=== PATIENT | female | born 1970 | race Caucasian/White ===

== ENCOUNTER 2016-11-26 19:06 | Inpatient (IN) | payer SELFPAY ==
[~2016-11-26] VITALS: Ht 162.6 cm; Wt 133.0 kg
[2016-11-26 20:00] VITALS: BP 104/66; PULSE 88; RESP 20; TEMP 98; O2SAT 97
[2016-11-26 20:19] VITALS: BP 104/66
[2016-11-27] MEDS ORDERED: SODIUM CHLOR 0.9% 1000 ML INJ 1,000 ML IV ONE (01:00)
[2016-11-27] MEDS ORDERED: KETOROLAC TROMETHAMINE 30 MG/ML (IVP) VIAL IV PUSH ONE (01:00)
[2016-11-27 01:29] LABS: AUTOMATED NEUTROPHIL # 14.5 TH/MM3 (1.8-7.7); BASOPHIL # 0.1 TH/MM3 (0-0.2); BASOPHIL % 0.5 % (0.0-2.0); EOSINOPHIL # 0.4 TH/MM3 (0-0.4); HEMATOCRIT 35.8 % (35.0-46.0); HEMO FLAGS DIFF FINAL; LYMPH % 9.8 % (9.0-44.0); LYMPHOCYTE # 1.7 TH/MM3 (1.0-4.8); MEAN CORPUSCULAR HEMOGLOBIN 27.9 PG (27.0-34.0); MEAN CORPUSCULAR HGB CONC 33.6 % (32.0-36.0); MONO % 5.4 % (0.0-8.0); NEUT % 82.3 % (16.0-70.0); PLATELET COUNT 350 TH/MM3 (150-450); RED BLOOD COUNT 4.31 MIL/MM3 (4.00-5.30); RED CELL DISTRIBUTION WIDTH 14.2 % (11.6-17.2); WHITE BLOOD COUNT 17.7 TH/MM3 (4.0-11.0)
[2016-11-27 01:44] LABS: ALT (GPT) 16 U/L (10-53); ANION GAP 7 MEQ/L (5-15); AST (GOT) 16 U/L (15-37); BLOOD UREA NITROGEN 7 MG/DL (7-18); CHLORIDE 104 MEQ/L (98-107); GLOMERULAR FILTRATION RATE 88 ML/MIN (>89); POTASSIUM 3.9 MEQ/L (3.5-5.1); SODIUM (NA) 138 MEQ/L (136-145)
[2016-11-27 01:46] LABS: ALKALINE PHOSPHATASE 67 U/L (45-117); TOTAL BILIRUBIN ADULT 0.6 MG/DL (0.2-1.0)
[2016-11-27] MEDS ORDERED: CLINDAMYCIN INJ 600 MG in SODIUM CHLORIDE 0.9% INJ 100 ML IV ONE (02:30)
--- NOTE | 2016-11-27 02:54 | PD ---
HPI Chief Complaint: Skin Problem Time Seen by Provider: 19:20 Travel History International Travel<30 days: No Contact w/Intl Traveler<30days: No Traveled to known affect area: No History of Present Illness HPI Patient is a 46-year-old female who comes in complaining of a skin infection. She says she has a chronic skin condition, but she has noticed over the past few days that she has developed an infection. She said she had a sunburn to the area, but recently she has developed what she describes as little pus pockets. She does not know if she has had a fever. She complains of pain to her legs and her arms. She denies any injuries. She denies any cough or cold. She denies any chest pain or shortness of breath. [facility] Past Medical History Asthma: Yes GERD: Yes ?: Not : 5 Para: 3 Miscarriage: 1 : 1 Tubal Ligation: Yes Past Surgical History Section: Yes (x 2) Oral Surgery: Yes (TOOTH EXTRACTION) Social History Alcohol Use: No Tobacco Use: Yes Substance Use: No Allergies-Medications (Allergen,Severity, Reaction): Coded Allergies: No Known Allergies (Unverified , 11/27/16) Reported Meds & Prescriptions Reported Meds & Active Scripts Active No Active Prescriptions or Reported Medications Review of Systems Except as stated in HPI: all other systems reviewed are Neg General / Constitutional: Positive: Chills HENT: No: Headaches Cardiovascular: No: Chest Pain or Discomfort Respiratory: No: Cough, Shortness of Breath Gastrointestinal: No: Nausea Musculoskeletal: Positive: Pain Skin: Positive Rash, Positive Lesions Neurologic: No: Dizziness Physical Exam Narrative GENERAL: Awake and alert, in no acute distress. SKIN: Focused skin assessment warm/dry. Erythema and warmth of the lower extremities as well as areas of the upper extremities. There are small vesicles on her upper arms that seem to be filled with yellow fluid. HEAD: Atraumatic. Normocephalic. EYES: Pupils equal and round. No scleral icterus. ENT: Mucous membranes pink and moist. NECK: Trachea midline. No JVD. CARDIOVASCULAR: Regular rate and rhythm. No murmur appreciated. RESPIRATORY: No accessory muscle use. Clear to auscultation. Breath sounds equal bilaterally. GASTROINTESTINAL: Abdomen soft, non-tender, nondistended. MUSCULOSKELETAL: No obvious deformities. No clubbing. No cyanosis. No edema. NEUROLOGICAL: Awake and alert. No obvious cranial nerve deficits. Motor grossly within normal limits. Normal speech. PSYCHIATRIC: Appropriate mood and affect; insight and judgment normal. Data Data Last Documented VS Vital Signs Date Time Temp Pulse Resp B/P Pulse Ox O2 Delivery O2 Flow Rate FiO2 11/26/16 20:19 104/66 11/26/16 20:00 98.0 88 20 97 Orders Complete Blood Count With Diff (11/27/16 00:47) Comprehensive Metabolic Panel (11/27/16 00:47) Iv Access Insert/Monitor (11/27/16 00:47) Sodium Chlor 0.9% 1000 Ml Inj (Ns 1000 M (11/27/16 01:00) Ketorolac Inj (Toradol Inj) (11/27/16 01:00) Clindamycin Inj (Cleocin Inj) (11/27/16 02:30) Admit Order (Ed Use Only) (11/27/16 ) Labs Laboratory Tests Test 11/27/16 01:15 White Blood Count 17.7 TH/MM3 Red Blood Count 4.31 MIL/MM3 Hemoglobin 12.0 GM/DL Hematocrit 35.8 % Mean Corpuscular Volume 83.0 FL Mean Corpuscular Hemoglobin 27.9 PG Mean Corpuscular Hemoglobin 33.6 % Concent Red Cell Distribution Width 14.2 % Platelet Count 350 TH/MM3 Mean Platelet Volume 6.9 FL Neutrophils (%) (Auto) 82.3 % Lymphocytes (%) (Auto) 9.8 % Monocytes (%) (Auto) 5.4 % Eosinophils (%) (Auto) 2.0 % Basophils (%) (Auto) 0.5 % Neutrophils # (Auto) 14.5 TH/MM3 Lymphocytes # (Auto) 1.7 TH/MM3 Monocytes # (Auto) 1.0 TH/MM3 Eosinophils # (Auto) 0.4 TH/MM3 Basophils # (Auto) 0.1 TH/MM3 CBC Comment DIFF FINAL Differential Comment Sodium Level 138 MEQ/L Potassium Level 3.9 MEQ/L Chloride Level 104 MEQ/L Carbon Dioxide Level 27.0 MEQ/L Anion Gap 7 MEQ/L Blood Urea Nitrogen 7 MG/DL Creatinine 0.71 MG/DL Estimat Glomerular Filtration 88 ML/MIN Rate Random Glucose 127 MG/DL Calcium Level 7.9 MG/DL Total Bilirubin 0.6 MG/DL Aspartate Amino Transf 16 U/L (AST/SGOT) Alanine Aminotransferase 16 U/L (ALT/SGPT) Alkaline Phosphatase 67 U/L Total Protein 7.3 GM/DL Albumin 2.8 GM/DL MDM Medical Decision Making Medical Screen Exam Complete: Yes Emergency Medical Condition: Yes Differential Diagnosis Cellulitis versus sunburn versus chronic skin condition Narrative Course Patient is a 38-year-old female comes in complaining of pain to her extremities due to a rash. Exam shows erythema and warmth of her lower extremities as well as her upper extremities. I established, labs sent. Labs showed elevated white blood cell count. Patient given IV fluids, Toradol, clindamycin. She'll be admitted for further management of cellulitis. Diagnosis Primary Impression: Cellulitis Qualified Code: L03.115 - Cellulitis of right lower extremity Admitting Information Admitting Physician Requests: Admit Scripts No Active Prescriptions or Reported Meds Lavonne Mcmillan MD Nov 27, 2016 02:54
[2016-11-27] MEDS ORDERED: NALOXONE HCL 0.4 MG/ML AMP IV PRN (03:00)
[2016-11-27] MEDS ORDERED: SODIUM CHLORIDE 0.9% FLUSH 10 ML FLUSH IV FLUSH PRN (03:00)
--- NOTE | 2016-11-27 03:56 | HHI.HP ---
[facility] No Primary Care Physician Admission Diagnosis Cellulitis Diagnoses: Chief Complaint: RLE swelling and redness Travel History International Travel<30 Days: No Contact w/Intl Traveler <30 Da: No Traveled to Known Affected Are: No History of Present Illness Written by JIM Steele acting as scribe for [Yamilet] on 11/27/16 at 03: 49. 46 y/o female with a history of a skin disorder( unknown name), COPD, arthritis , sciatica pain came to the ED with complaints of increased redness and swelling to her RLE. She states she noticed her leg to be inflamed and swollen more recently. She denies any fever or chills. No chest pain or sob. One week ago she did have some nausea and diarrhea for a few days. No recent antibiotic use. She is homeless and states her PCP is in [place]. Past Family Social History Past Medical History Skin disorder( unknown name) COPD Past Surgical History C section x 2 Dental surgery as a child Reported Medications Reported Meds & Active Scripts Active No Active Prescriptions or Reported Medications Allergies: Coded Allergies: No Known Allergies (Unverified , 11/27/16) Active Ordered Medications Current Medications Medications (Trade) Dose Ordered Sig/Peewee Route Start Time Stop Time Status Last Admin (NS Flush) 2 ml UNSCH PRN IV FLUSH 11/27/16 03:00 (NS Flush) 2 ml BID IV FLUSH 11/27/16 09:00 Naloxone HCl 0.4 mg 0.4 mg UNSCH PRN IV 11/27/16 03:00 (Cleocin Inj/NS Inj) 104 ml @ 208 mls/hr Q6H IV 11/27/16 08:30 (Lactinex) 1 tab TID PO 11/27/16 09:00 Family History Grandfather: Heart disease Social History Tobacco use: A few a day Alcohol use: Denies Illicit drug use: Denies Physical Exam Vital Signs Vital Signs Date Time Temp Pulse Resp B/P Pulse Ox O2 Delivery O2 Flow Rate FiO2 11/26/16 20:19 104/66 11/26/16 20:00 98.0 88 20 104/66 97 Physical Exam GENERAL: This is a well-nourished, obese, dishevel patient, in no apparent distress. SKIN: Cellulitis to RLE HEAD: Atraumatic. Normocephalic. No temporal or scalp tenderness. EYES: Pupils equal round and reactive. ENT: Nose without bleeding, purulent drainage or septal hematoma. NECK: Trachea midline. No JVD or lymphadenopathy. Supple, nontender, no meningeal signs. CARDIOVASCULAR: Regular rate and rhythm without murmurs, gallops, or rubs. RESPIRATORY: Clear to auscultation. Breath sounds equal bilaterally. No wheezes , rales, or rhonchi. GASTROINTESTINAL: Abdomen soft, non-tender, nondistended. No hepato-splenomegaly , or palpable masses. No guarding. MUSCULOSKELETAL: RLE mild edema. No calf tenderness. NEUROLOGICAL: Awake and alert. Motor and sensory grossly within normal limits. Normal speech. Laboratory Laboratory Tests Test 11/27/16 01:15 White Blood Count 17.7 Red Blood Count 4.31 Hemoglobin 12.0 Hematocrit 35.8 Mean Corpuscular Volume 83.0 Mean Corpuscular Hemoglobin 27.9 Mean Corpuscular Hemoglobin 33.6 Concent Red Cell Distribution Width 14.2 Platelet Count 350 Mean Platelet Volume 6.9 Neutrophils (%) (Auto) 82.3 Lymphocytes (%) (Auto) 9.8 Monocytes (%) (Auto) 5.4 Eosinophils (%) (Auto) 2.0 Basophils (%) (Auto) 0.5 Neutrophils # (Auto) 14.5 Lymphocytes # (Auto) 1.7 Monocytes # (Auto) 1.0 Eosinophils # (Auto) 0.4 Basophils # (Auto) 0.1 CBC Comment DIFF FINAL Differential Comment Sodium Level 138 Potassium Level 3.9 Chloride Level 104 Carbon Dioxide Level 27.0 Anion Gap 7 Blood Urea Nitrogen 7 Creatinine 0.71 Estimat Glomerular Filtration 88 Rate Random Glucose 127 Calcium Level 7.9 Total Bilirubin 0.6 Aspartate Amino Transf 16 (AST/SGOT) Alanine Aminotransferase 16 (ALT/SGPT) Alkaline Phosphatase 67 Total Protein 7.3 Albumin 2.8 Result Diagram: 11/27/1611411/27/16114 Assessment and Plan Problem List: (1) Cellulitis ICD Code: L03.90 Status: Acute (2) Leukocytosis ICD Code: D72.829 Status: Acute Assessment and Plan 46 y/o female with a history of a skin disorder( unknown name), COPD, arthritis , sciatica pain came to the ED with complaints of increased redness and swelling to her RLE. Cellulitis, RLE -Antibiotics IV Clindamycin -Lactobacillus po ordered Leukocytosis, suspected due to cellulitis -Antibiotics as above -CBC in AM COPD, chronic not in exacerbation -Cont to monitor DVT prophylaxis: Lovenox This note was transcribed by scribalise [Lilly Egan]. I, Dr. Casimiro Woodard personally performed the history, physical exam, and medical decision making; and confirmed the accuracy of the information in the transcribed note. Authenticated by Dr. Casimiro Woodard on 11/27/16 at 03:49. Discussed Condition With Patient and ED physician Physician Certification 2 Midnight Certification Type: Admission for Inpatient Services Order for Inpatient Services The services are ordered in accordance with Medicare regulations or non- Medicare payer requirements, as applicable. In the case of services not specified as inpatient-only, they are appropriately provided as inpatient services in accordance with the 2-midnight benchmark. Estimated LOS (days): 2 days is the estimated time the patient will need to remain in the hospital, assuming treatment plan goals are met and no additional complications. Post-Hospital Plan: Not yet determined Problem Qualifiers (1) Cellulitis: Qualified Code: L03.115 - Cellulitis of right lower extremity Lilly Egan Nov 27, 2016 03:56 Casimiro Woodard MD Nov 27, 2016 07:55
[2016-11-27] MEDS: ENOXAPARIN SODIUM 40 MG/0.4 ML SYRINGE SQ SCH (05:35)
[2016-11-27 05:40] VITALS: BP 107/58; PULSE 88; RESP 18; TEMP 98.8; O2SAT 94
[2016-11-27 07:49] VITALS: BP 118/64; PULSE 82; RESP 18; TEMP 97.5; O2SAT 96
--- NOTE | 2016-11-27 08:25 | HHI.PR ---
Subjective Remarks Follow up for cellulitis. The patient reports continued redness and swelling of the right leg and left arm, minimal improvement overnight. Denies fevers/ chills. She reports getting sunburnt last week and developed blisters that is now infected. She denies any other medical complaints at this time. She is requesting regular diet. Objective Vitals Vital Signs Date Time Temp Pulse Resp B/P Pulse Ox O2 Delivery O2 Flow Rate FiO2 11/27/16 07:49 97.5 82 18 118/64 96 11/27/16 05:40 98.8 88 18 107/58 94 11/26/16 20:19 104/66 11/26/16 20:00 98.0 88 20 104/66 97 Result Diagram: 11/27/1611411/27/16114 Objective Remarks GENERAL: Well-nourished, well-developed middle aged female patient in [facility]. SKIN: Warm and dry. RLE from distal knee to ankle with erythema, edema, induration, and multiple small blisters, few draining lesions. LUE with erythema , mild induration, and healing/scabbed blisters. HEENT: Normocephalic. Atraumatic. Pupils equal and round. Mucous membranes pink and moist. NECK: Supple. Trachea midline. CARDIOVASCULAR: Regular rate and rhythm. S1, S2 noted. No murmur appreciated. RESPIRATORY: No accessory muscle use. Clear to auscultation. Breath sounds equal bilaterally. GASTROINTESTINAL: Abdomen soft, non-tender, nondistended. Normoactive bowel sounds x4. MUSCULOSKELETAL: No obvious deformities. Extremities without clubbing, cyanosis , or edema. RLE with edema/cellulitis as above. NEUROLOGICAL: Awake and alert. No obvious cranial nerve deficits. Motor grossly within normal limits. Normal speech. PSYCHIATRIC: Appropriate mood and affect; insight and judgment normal. Medications and IVs Current Medications Medications (Trade) Dose Ordered Sig/Peewee Route Start Time Stop Time Status Last Admin (NS Flush) 2 ml UNSCH PRN IV FLUSH 11/27/16 03:00 (NS Flush) 2 ml BID IV FLUSH 11/27/16 09:00 Naloxone HCl 0.4 mg 0.4 mg UNSCH PRN IV 11/27/16 03:00 (Cleocin Inj/NS Inj) 104 ml @ 208 mls/hr Q6H IV 11/27/16 08:30 (Lactinex) 1 tab TID PO 11/27/16 09:00 (Lovenox Inj) 40 mg Q24H SQ 11/27/16 06:00 11/27/16 05:35 A/P Problem List: (1) Cellulitis ICD Code: L03.90 Status: Acute (2) Leukocytosis ICD Code: D72.829 Status: Acute Assessment and Plan 46 y/o female with a history of a skin disorder( unknown name), COPD, arthritis , sciatica pain came to the ED with complaints of increased redness and swelling to her RLE. Cellulitis of Right Lower Extremity: symptoms x1week. Afebrile however + leukocytosis with WBC 17.7K. Continue antibiotics with IV Clindamycin. Added Lactobacillus. IVF hydration. Leukocytosis: suspected secondary to cellulitis. Antibiotics as above. Give IVF. Repeat CBC in am. COPD: chronic not in exacerbation. Duonebs prn. Monitor. Pediculosis Capitis: patient reports pulling lice from head over the past few days. Will treat with Permethrin x1. Contact isolation for now. DVT prophylaxis: Lovenox Discharge Planning Discharge pending further clinical improvement, hopefully in 1-2 days. Will likely need assistance filling antibiotics prescriptions at discharge. Problem Qualifiers (1) Cellulitis: Qualified Code: L03.115 - Cellulitis of right lower extremity Litzy Dee PA-C Nov 27, 2016 8:24 am
[2016-11-27] MEDS ORDERED: SODIUM CHLOR 0.9% 1000 ML INJ 1,000 ML IV SCH (09:00)
[2016-11-27 09:30] VITALS: PULSE 87
[2016-11-27] MEDS ORDERED: RESP: ALBUTEROL 2.5 MG/IPRATROPIUM 0.5 MG NEB (PRN) NEB (09:30)
[2016-11-27] MEDS: CLINDAMYCIN INJ 600 MG in SODIUM CHLORIDE 0.9% INJ 100 ML IV SCH ×3 (09:56→20:09)
[2016-11-27] MEDS: SODIUM CHLORIDE 0.9% FLUSH 10 ML FLUSH IV FLUSH SCH ×2 (09:56→20:09)
[2016-11-27] MEDS: LACTOBACILLUS ACIDOPHILUS TAB PO SCH ×3 (09:56→16:56)
[2016-11-27 11:44] VITALS: BP 120/64; PULSE 84; RESP 20; TEMP 98.4; O2SAT 98
[2016-11-27] MEDS: ACETAMINOPHEN 325 MG TAB PO PRN ×2 (14:09→20:10)
[2016-11-27] MEDS: diphenhydrAMINE HCL 25 MG CAP PO PRN ×2 (14:09→20:10)
[2016-11-27] MEDS ORDERED: PERMETHRIN 1% LOTION 60 ML BTL TOPICAL ONE (15:00)
[2016-11-27 16:40] VITALS: BP 113/58; PULSE 81; RESP 20; TEMP 97.6; O2SAT 97
[2016-11-27 20:00] VITALS: BP 114/68; PULSE 74; RESP 18; TEMP 98; O2SAT 98
[2016-11-28] VITALS: BP 125/58; PULSE 71; RESP 18; TEMP 97.9; O2SAT 98
[2016-11-28] MEDS: CLINDAMYCIN INJ 600 MG in SODIUM CHLORIDE 0.9% INJ 100 ML IV SCH ×4 (03:54→20:53)
[2016-11-28 04:00] VITALS: BP 104/55; PULSE 72; RESP 18; TEMP 97.9; O2SAT 94
[2016-11-28] MEDS: ENOXAPARIN SODIUM 40 MG/0.4 ML SYRINGE SQ SCH (06:00)
[2016-11-28 07:45] LABS: AUTOMATED NEUTROPHIL # 6.8 TH/MM3 (1.8-7.7); BASOPHIL % 0.3 % (0.0-2.0); EOSINOPHIL # 0.6 TH/MM3 (0-0.4); EOSINOPHIL % 6.1 % (0.0-4.0); HEMATOCRIT 33.3 % (35.0-46.0); HEMO FLAGS DIFF FINAL; LYMPH % 15.1 % (9.0-44.0); LYMPHOCYTE # 1.4 TH/MM3 (1.0-4.8); MEAN CELL VOLUME 83.4 FL (80.0-100.0); MEAN CORPUSCULAR HEMOGLOBIN 26.9 PG (27.0-34.0); MEAN CORPUSCULAR HGB CONC 32.3 % (32.0-36.0); MONO % 6.8 % (0.0-8.0); NEUT % 71.7 % (16.0-70.0); PLATELET COUNT 296 TH/MM3 (150-450); RED CELL DISTRIBUTION WIDTH 14.7 % (11.6-17.2); WHITE BLOOD COUNT 9.5 TH/MM3 (4.0-11.0)
[2016-11-28] MEDS: LACTOBACILLUS ACIDOPHILUS TAB PO SCH ×3 (07:47→18:39)
[2016-11-28] MEDS: SODIUM CHLORIDE 0.9% FLUSH 10 ML FLUSH IV FLUSH SCH ×2 (07:48→20:54)
[2016-11-28] MEDS: diphenhydrAMINE HCL 25 MG CAP PO PRN (07:58)
[2016-11-28 08:03] VITALS: BP 131/62; PULSE 70; RESP 18; TEMP 98.1; O2SAT 98
[2016-11-28 08:12] LABS: BICARBONATE 24.6 MEQ/L (21.0-32.0); POTASSIUM 4.2 MEQ/L (3.5-5.1)
[2016-11-28 12:24] VITALS: BP 133/60; PULSE 67; RESP 18; TEMP 98.1; O2SAT 97
--- NOTE | 2016-11-28 13:25 | HHI.PR ---
Subjective Remarks Patient states cellulitis is slightly improved. No fevers or chills. Objective Vitals Vital Signs Date Time Temp Pulse Resp B/P Pulse Ox O2 Delivery O2 Flow Rate FiO2 11/28/16 12:24 98.1 67 18 133/60 97 11/28/16 08:03 98.1 70 18 131/62 98 11/28/16 04:00 97.9 72 18 104/55 94 11/28/16 00:00 97.9 71 18 125/58 98 11/27/16 20:34 Room Air 11/27/16 20:00 98.0 74 18 114/68 98 11/27/16 16:40 97.6 81 20 113/58 97 11/27/16 16:35 Room Air 11/27/16 15:10 19 I/O 11/27/16 11/27/16 11/27/16 11/28/16 11/28/16 11/28/16 07:00 15:00 23:00 07:00 15:00 23:00 Intake Total 360 ml 360 ml Balance 360 ml 360 ml Intake Oral 360 ml 360 ml # Voids 1 2 # Bowel Movements 0 0 Result Diagram: 11/28/16 0700 11/28/16 0700 Objective Remarks GENERAL: Well-nourished, well-developed middle aged female patient in [facility]. SKIN: Warm and dry. RLE from distal knee to ankle with erythema, edema, induration, and multiple small blisters, few draining lesions. LUE with erythema , mild induration, and healing/scabbed blisters. CARDIOVASCULAR: Regular rate and rhythm. S1, S2 noted. No murmur appreciated. RESPIRATORY: No accessory muscle use. Clear to auscultation. Breath sounds equal bilaterally. GASTROINTESTINAL: Abdomen soft, non-tender, nondistended. Normoactive bowel sounds x4. A/P Problem List: (1) Cellulitis ICD Code: L03.90 Status: Acute (2) Leukocytosis ICD Code: D72.829 Status: Acute Assessment and Plan 46 y/o female with a history of a skin disorder( unknown name), COPD, arthritis , sciatica pain came to the ED with complaints of increased redness and swelling to her RLE. Cellulitis of Right Lower Extremity: symptoms x1week. Afebrile however + leukocytosis with WBC 17.7K on admission. Continue antibiotics with IV Clindamycin. Added Lactobacillus. IVF hydration. Leukocytosis: suspected secondary to cellulitis. Antibiotics as above. Resolved COPD: chronic not in exacerbation. Duonebs prn. Monitor. Pediculosis Capitis: patient reports pulling lice from head over the past few days. Will treat with Permethrin x1. Contact isolation for now. DVT prophylaxis: Lovenox Discharge Planning Probable discharge tomorrow. Problem Qualifiers (1) Cellulitis: Qualified Code: L03.115 - Cellulitis of right lower extremity Salazar Sun MD Nov 28, 2016 13:25
[2016-11-28 16:03] VITALS: BP 131/68; PULSE 67; RESP 19; TEMP 98.2; O2SAT 99
[2016-11-28] MEDS: ACETAMINOPHEN 325 MG TAB PO PRN (18:40)
[2016-11-28 20:00] VITALS: BP 136/62; PULSE 87; RESP 16; TEMP 98.3; O2SAT 99
[2016-11-29] VITALS: BP 103/48; PULSE 79; RESP 18; TEMP 97.9; O2SAT 100
[2016-11-29 04:00] VITALS: BP 117/57; PULSE 72; RESP 18; TEMP 97.6; O2SAT 100
[2016-11-29] MEDS: CLINDAMYCIN INJ 600 MG in SODIUM CHLORIDE 0.9% INJ 100 ML IV SCH ×3 (04:17→14:34)
[2016-11-29] MEDS: diphenhydrAMINE HCL 25 MG CAP PO PRN ×2 (04:18→09:12)
[2016-11-29] MEDS: ENOXAPARIN SODIUM 40 MG/0.4 ML SYRINGE SQ SCH (04:18)
[2016-11-29] MEDS: ACETAMINOPHEN 325 MG TAB PO PRN (04:18)
[2016-11-29] MEDS: LACTOBACILLUS ACIDOPHILUS TAB PO SCH ×2 (08:58→13:00)
[2016-11-29] MEDS: SODIUM CHLORIDE 0.9% FLUSH 10 ML FLUSH IV FLUSH SCH (09:08)
[2016-11-29 10:11] VITALS: BP 107/51; PULSE 65; RESP 18; TEMP 97.8; O2SAT 96
[2016-11-29] MEDS ORDERED: CLIN1CAP6 PO (12:09)
--- NOTE | 2016-11-29 12:09 | HHI.DCPOC ---
Discharge Care Plan Diagnosis: (1) Cellulitis Goals to Promote Your Health * To prevent worsening of your condition and complications * To maintain your health at the optimal level Directions to Meet Your Goals Take your medications as prescribed Follow your dietary instruction Follow activity as directed Keep your appointments as scheduled Take your immunizations and boosters as scheduled If your symptoms worsen call your PCP, if no PCP go to Urgent Care Center or Emergency Room Smoking is Dangerous to Your Health. Avoid second hand smoke Call the 24-hour hour crisis hotline for domestic abuse at Litzy Dee PA-C Nov 29, 2016 12:09 pm
--- NOTE | 2016-11-29 12:40 | HHI.DS ---
Discharge Summary Admission Date Nov 27, 2016 at 2:48 am Discharge Date: Nov 29, 2016 Admitting Diagnosis Cellulitis (1) Cellulitis ICD Code: L03.90 Diagnosis: Principal (2) Leukocytosis ICD Code: D72.829 Diagnosis: Secondary Procedures No procedures performed to the patient. Brief History - From Admission 46 y/o female with a history of a skin disorder( unknown name), COPD, arthritis , sciatica pain came to the ED with complaints of increased redness and swelling to her RLE. She states she noticed her leg to be inflamed and swollen more recently. She denies any fever or chills. No chest pain or sob. One week ago she did have some nausea and diarrhea for a few days. No recent antibiotic use. She is homeless and states her PCP is in [place]. CBC/BMP: 11/28/16 0700 11/28/16 0700 Significant Findings Laboratory Tests Test 11/27/16 11/28/16 01:15 07:00 White Blood Count 17.7 TH/MM3 (4.0-11.0) Mean Platelet Volume 6.9 FL (7.0-11.0) Neutrophils (%) (Auto) 82.3 % 71.7 % (16.0-70.0) (16.0-70.0) Neutrophils # (Auto) 14.5 TH/MM3 (1.8-7.7) Monocytes # (Auto) 1.0 TH/MM3 (0-0.9) Estimat Glomerular Filtration 88 ML/MIN (>89) Rate Random Glucose 127 MG/DL 124 MG/DL (74-106) (74-106) Calcium Level 7.9 MG/DL 7.7 MG/DL (8.5-10.1) (8.5-10.1) Albumin 2.8 GM/DL (3.4-5.0) Hemoglobin 10.8 GM/DL (11.6-15.3) Hematocrit 33.3 % (35.0-46.0) Mean Corpuscular Hemoglobin 26.9 PG (27.0-34.0) Eosinophils (%) (Auto) 6.1 % (0.0-4.0) Eosinophils # (Auto) 0.6 TH/MM3 (0-0.4) PE at Discharge GENERAL: Well-nourished, well-developed middle aged female patient in [facility]. SKIN: Warm and dry. RLE from distal knee to ankle with erythema, edema, induration, and multiple small blisters, few draining lesions. LUE with erythema , mild induration, and healing/scabbed blisters. CARDIOVASCULAR: Regular rate and rhythm. S1, S2 noted. No murmur appreciated. RESPIRATORY: No accessory muscle use. Clear to auscultation. Breath sounds equal bilaterally. GASTROINTESTINAL: Abdomen soft, non-tender, nondistended. Normoactive bowel sounds x4. Pt update on day of discharge The patient right leg cellulitis and left arm cellulitis is much improved, no further warmth/erythema. She denies any fevers or chills overnight. Complains of some right ankle pain upon ambulation however has been able to ambulate to the restroom without difficulty. Hospital Course 46 y/o female with a history of a skin disorder( unknown name), COPD, arthritis , sciatica pain came to the ED with complaints of increased redness and swelling to her RLE. Cellulitis of Right Lower Extremity: symptoms x1week, appears patient sustained a sunburn with blisters that became infected, with significant diffuse erythema and small pustules throughout the distal right lower extremity. Afebrile however +leukocytosis with WBC 17.7K on admission. Treated with antibiotics with IV Clindamycin. Added Lactobacillus. IVF hydration. Cellulitis much improved, no further warmth/erythema, stable for discharge. D/c on Clinda 300mg q6h x7days, asked case management for assistance with meds and discharge planning as she is homeless. Leukocytosis: suspected secondary to cellulitis. Antibiotics as above. Resolved COPD: chronic not in exacerbation. Duonebs prn. Monitor. Stable throughout admission. Pediculosis Capitis: patient reports pulling lice from head over the past few days. Treated with Permethrin x1. Contact isolation and hair nets. DVT prophylaxis: Lovenox Pt Condition on Discharge: Stable Discharge Disposition: Discharge Home Discharge Time: > 30 minutes Discharge Instructions DIET: Follow Instructions for: As Tolerated, No Restrictions Activities you can perform: Regular-No Restrictions Follow up Referrals: PCP Follow-up - 1 Week New Medications: Clindamycin (Clindamycin) 300 Mg Cap 300 MG PO Q6HR Infection #28 Ref 0 CAP Litzy Dee PA-C Nov 29, 2016 12:40 Litzy Dee PA-C Nov 29, 2016 12:40 pm
[2016-11-29 14:01] VITALS: BP 137/74; PULSE 64; RESP 17; TEMP 97.4; O2SAT 99
[2016-11-29 16:59] VITALS: BP 108/55; PULSE 81; RESP 17; TEMP 98.5; O2SAT 96
== END 2016-11-29 18:34 | disposition home or self-care (01) | DRG 603 ==
LOC: NEPE 19:06 → NEDA 11-27 02:48 → NEPFCDU 11-27 04:38 → N04B 11-27 15:54
PROVIDERS: ADMIT Family Medicine; ATTEND Family Medicine
DX: L03.115 Cellulitis of right lower limb (principal); L03.114 Cellulitis of left upper limb; J44.9 Chronic obstructive pulmonary disease, unspecified; M54.30 Sciatica, unspecified side; B85.0 Pediculosis due to Pediculus humanus capitis; K21.9 Gastro-esophageal reflux disease without esophagitis; Z72.0 Tobacco use; M19.90 Unspecified osteoarthritis, unspecified site; Z59.0 Homelessness
CPT/HCPCS: 80048; 80053; 85025; 96361; 96374; J1650; J1885; J7030